=== PATIENT | female | born 1955 | race Caucasian/White ===

== ENCOUNTER 2022-12-13 17:26 | Observation (INO) | payer OTHER ==
[2022-12-13] MEDS ORDERED: DUONEB 0.5-3 MG/3 ml Neb IH ONE ×2 (18:21→18:30)
--- NOTE | 2022-12-13 18:39 | ERPHSYRPT ---
- History of Present Illness Time Seen by Provider: 12/13/22 17:28 Source: patient Exam Limitations: no limitations Patient Subjective Stated Complaint: pt here for cough,congest for a couple days, no fever Triage Nursing Assessment: pt alert, resp easy, has congested sounding cough, skin w/d/p. no edema noted, has cam boot to right foot Physician History: 67 years old female with history of hypertension, hyperlipidemia, DVT/PE on Xarelto presented in the ER with 2 to 3 days history of cough congestion, body aches, feeling fatigued tired and dehydrated. Patient reports minimal productive cough of clear to yellow sputum with generalized chest soreness because of repeated coughing. No fever or chills reported. Denies any known sick contact. No abdominal pain nausea vomiting. Timing/Duration: day(s) (2), gradual onset, worse Cough Quality/Degree: moderate, productive cough, sputum Possible Cause: unknown cause Modifying Factors: Worsens With: coughing Associated Symptoms: chest pain/soreness, cough, headache, muscle aches, nasal congestion, nasal drainage, sinus infection, sore throat, wheezing Allergies/Adverse Reactions: No Known Drug Allergies Allergy (Unverified 12/13/22 17:46) Home Medications: Amlodipine Besylate 5 mg [Norvasc 5 mg] 5 mg PO DAILY 12/13/22 [History] Atorvastatin Calcium [Lipitor 20MG Tablet] 20 mg PO DAILY 12/13/22 [History] Gabapentin [Neurontin ] 200 mg PO DAILY 12/13/22 [History] Hydrochlorothiazide 25 mg [hydroDIURIL 25 MG] 25 mg PO DAILY 12/13/22 [History] Rivaroxaban [Xarelto] 20 mg PO DAILY 12/13/22 [History] Hx Tetanus, Diphtheria Vaccination/Date Given: No Hx Influenza Vaccination/Date Given: Yes Hx Pneumococcal Vaccination/Date Given: Yes Immunizations Up to Date: Yes Travel Risk - International Travel Have you traveled outside of the country in past 3 weeks: No - Coronavirus Screening Are you exhibiting any of the following symptoms?: No - Vaccine Status Have you recieved a Covid-19 vaccination: Yes [employer]: Moderna - Vaccination Dates Date of 2cond Vaccination (if applicable): 2020 - Review of Systems Constitutional: Fatigue, Weakness Eyes: No Symptoms Ears, Nose, & Throat: Nose Congestion, Throat Pain, Throat Swelling Respiratory: Cough Abdominal/Gastrointestinal: No Symptoms Genitourinary Symptoms: No Symptoms Musculoskeletal: Myalgias Skin: No Symptoms Neurological: Headache Psychological: No Symptoms Hematologic/Lymphatic: Blood Clots Immunological/Allergic: No Symptoms - Past Medical History Pertinent Past Medical History: Yes Cardiac History: High Cholesterol, Hypertension Other Medical History: dvt - Past Surgical History Past Surgical History: Yes Gastrointestinal: Cholecystectomy Female Surgical History: Hysterectomy - Social History Smoking Status: Former smoker Exposure to second hand smoke: No Drug Use: none Patient Lives Alone: No - Nursing Vital Signs Nursing Vital Signs: Initial Vital Signs Temperature 96.9 F 12/13/22 17:54 Pulse Rate 93 H 12/13/22 17:54 Respiratory Rate 20 12/13/22 17:54 Blood Pressure 158/80 12/13/22 17:54 O2 Sat by Pulse Oximetry 95 12/13/22 17:54 Pain Scale Pain Intensity 4 - Physical Exam General Appearance: no apparent distress, alert Eye Exam: PERRL/EOMI, eyes nml inspection Ears, Nose, Throat Exam: moist mucous membranes, pharyngeal erythema Neck Exam: normal inspection, non-tender, supple, full range of motion, No meningismus Respiratory Exam: wheezing, No respiratory distress, No accessory muscle use Cardiovascular Exam: regular rate/rhythm, normal heart sounds Gastrointestinal/Abdomen Exam: soft, normal bowel sounds, No tenderness Extremity Exam: normal inspection, normal range of motion Neurologic Exam: alert, oriented x 3, cooperative Skin Exam: normal color SpO2 Interpretation: normal SpO2: 92 O2 Delivery: Room Air Ordered Tests: Active Orders 24 hr Category Date Time Status CHEST 1 VIEW (PORTABLE) Stat Exams 12/13/22 18:22 Taken BLOOD CULTURE Stat Lab 12/13/22 18:40 Received CBC W DIFF Stat Lab 12/13/22 18:30 Completed CMP Stat Lab 12/13/22 18:30 Completed Lactic Acid Stat Lab 12/13/22 18:35 Completed MAGNESIUM Stat Lab 12/13/22 18:30 Completed NT PRO BNPII Stat Lab 12/13/22 18:30 Completed TROPONIN Q4H Lab 12/13/22 18:30 Completed TROPONIN Q4H Lab 12/13/22 22:30 Ordered TROPONIN Q4H Lab 12/14/22 02:30 Ordered Respiratory Therapy Assessment DAILY RT 12/13/22 18:34 Active Medication Summary Discontinued Medications Generic Name Dose Route Start Last Admin Trade Name Kerri PRN Reason Stop Dose Admin Albuterol/Ipratropium 3 ml 12/13/22 18:21 12/13/22 18:36 Ipratropium/Albuterol Sulfate 3 Ml Ampul.Neb IH 12/13/22 18:22 3 ml STAT ONE Administration Albuterol/Ipratropium Confirm 12/13/22 18:30 Ipratropium/Albuterol Sulfate 3 Ml Ampul.Neb Administered 12/13/22 18:31 Dose 3 ml IH .STK-MED ONE Azithromycin 500 mg in 250 mls @ 250 mls/hr 12/13/22 19:08 12/13/22 20:12 Zithromax 500 Mg/ 250 Ml Nacl Premix IV 12/13/22 20:07 250 ml/hr STAT STA 250 mls/hr Administration Ceftriaxone Sodium/Dextrose 2 g in 50 mls @ 100 mls/hr 12/13/22 19:08 12/13/22 19:36 Rocephin 2 Gm-D5w 50ml Bag IV 12/13/22 19:37 100 ml/hr STAT STA 100 mls/hr Administration Ceftriaxone Sodium/Dextrose Confirm 12/13/22 19:34 Rocephin 2 Gm-D5w 50ml Bag Administered 12/13/22 19:35 Dose 2 g in 50 mls @ ud IV .STK-MED ONE Azithromycin Confirm 12/13/22 20:09 Zithromax 500 Mg/ 250 Ml Nacl Premix Administered 12/13/22 20:10 Dose 500 mg in 250 mls @ ud IV .STK-MED ONE Lab/Rad Data: Laboratory Result Diagrams 12/13/22 18:30 12/13/22 18:30 Laboratory Results 12/13/22 12/13/22 12/13/22 Range/Units 18:40 18:35 18:30 WBC (4.0-10.5) x10^3/uL RBC (4.1-5.4) x10^6/uL Hgb (12.0-16.0) g/dL Hct (35-47) % MCV (78-100) fL MCH (26-32) pg MCHC (32-36) g/dL RDW (11.5-14.0) % Plt Count (150-450) x10^3/uL MPV (7.5-11.0) fL Gran % (36.0-66.0) % Immature Gran % (Auto) (0.00-0.4) % Nucleat RBC Rel Count (0.00-0.1) % Eos # (Auto) (0-0.5) x10^3/uL Immature Gran # (Auto) (0.00-0.03) x10^3u/L Absolute Lymphs (auto) (1.0-4.6) x10^3/uL Absolute Monos (auto) (0.0-1.3) x10^3/uL Absolute Nucleated RBC (0.00-0.01) x10^3u/L Lymphocytes % (24.0-44.0) % Monocytes % (0.0-12.0) % Eosinophils % (0.00-5.0) % Basophils % (0.0-0.4) % Absolute Granulocytes (1.4-6.9) x10^3/uL Basophils # (0-0.4) x10^3/uL Sodium (137-145) mmol/L Potassium (3.5-5.1) mmol/L Chloride (98-107) mmol/L Carbon Dioxide (22-30) mmol/L Anion Gap (5-15) MEQ/L BUN (7-17) mg/dL Creatinine (0.52-1.04) mg/dL Estimated GFR ML/MIN Glucose (74-106) mg/dL Lactic Acid 1.4 (0.4-2.0) Calcium (8.4-10.2) mg/dL Magnesium (1.6-2.3) mg/dL Total Bilirubin (0.2-1.3) mg/dL AST (14-36) U/L ALT (0-35) U/L Alkaline Phosphatase (38-126) U/L Troponin I (0.000-0.034) ng/mL NT-Pro-B Natriuret Pep 156 (<300) pg/mL Serum Total Protein (6.3-8.2) g/dL Albumin (3.5-5.0) g/dL Influenza Type A Ag NEGATIVE (NEGATIVE) Influenza Type B Ag NEGATIVE (NEGATIVE) RSV (PCR) NEGATIVE (NEGATIVE) SARS-CoV-2 (PCR) NEGATIVE (NEGATIVE) Group A Strep Antibody NOT DETECTED (NEGATIVE) 12/13/22 12/13/22 12/13/22 Range/Units 18:30 18:30 18:30 WBC 7.7 (4.0-10.5) x10^3/uL RBC 4.96 (4.1-5.4) x10^6/uL Hgb 14.4 (12.0-16.0) g/dL Hct 44.0 (35-47) % MCV 88.7 (78-100) fL MCH 29.0 (26-32) pg MCHC 32.7 (32-36) g/dL RDW 11.8 (11.5-14.0) % Plt Count 240 (150-450) x10^3/uL MPV 11.0 (7.5-11.0) fL Gran % 76.0 H (36.0-66.0) % Immature Gran % (Auto) 0.8 H (0.00-0.4) % Nucleat RBC Rel Count 0.0 (0.00-0.1) % Eos # (Auto) 0.07 (0-0.5) x10^3/uL Immature Gran # (Auto) 0.06 H (0.00-0.03) x10^3u/L Absolute Lymphs (auto) 0.92 L (1.0-4.6) x10^3/uL Absolute Monos (auto) 0.74 (0.0-1.3) x10^3/uL Absolute Nucleated RBC 0.00 (0.00-0.01) x10^3u/L Lymphocytes % 11.9 L (24.0-44.0) % Monocytes % 9.6 (0.0-12.0) % Eosinophils % 0.9 (0.00-5.0) % Basophils % 0.8 (0.0-0.4) % Absolute Granulocytes 5.85 (1.4-6.9) x10^3/uL Basophils # 0.06 (0-0.4) x10^3/uL Sodium 137 (137-145) mmol/L Potassium 3.2 L (3.5-5.1) mmol/L Chloride 95 L (98-107) mmol/L Carbon Dioxide 29 (22-30) mmol/L Anion Gap 16.1 H (5-15) MEQ/L BUN 21 H (7-17) mg/dL Creatinine 1.03 (0.52-1.04) mg/dL Estimated GFR 56.5 ML/MIN Glucose 119 H (74-106) mg/dL Lactic Acid (0.4-2.0) Calcium 9.9 (8.4-10.2) mg/dL Magnesium 2.0 (1.6-2.3) mg/dL Total Bilirubin 1.30 (0.2-1.3) mg/dL AST 41 H (14-36) U/L ALT 35 (0-35) U/L Alkaline Phosphatase 127 H (38-126) U/L Troponin I < 0.012 (0.000-0.034) ng/mL NT-Pro-B Natriuret Pep (<300) pg/mL Serum Total Protein 8.4 H (6.3-8.2) g/dL Albumin 4.2 (3.5-5.0) g/dL Influenza Type A Ag (NEGATIVE) Influenza Type B Ag (NEGATIVE) RSV (PCR) (NEGATIVE) SARS-CoV-2 (PCR) (NEGATIVE) Group A Strep Antibody (NEGATIVE) - Progress Progress: re-examined Air Movement: good Progress Note: 12/13/22 18:38 67 years old female with history of hypertension, hyperlipidemia, DVT/PE on Xarelto presented in the ER with 2 to 3 days history of cough congestion, body aches, feeling fatigued tired and dehydrated. Patient reports minimal productive cough of clear to yellow sputum with generalized chest soreness because of repeated coughing. No fever or chills reported. Denies any known sick contact. No abdominal pain nausea vomiting. 12/13/22 20:00 She is given DuoNeb, on reevaluation feeling some improvement, still coughing and desatting to 86%. Placed on 2 L oxygen currently satting around 96%. Chest x-ray showed right-sided pneumonia and started on Rocephin and Zithromax. Patient work-up showed normal white count, mildly low potassium and negative troponins. Normal lactate. Discussed with Dr. Flowers and patient is being admitted. I have discussed the results of work-up and plan of admission and current management with patient and daughter in detail who understand and agree with it. Antibiotics given: No Counseled pt/family regarding: lab results, diagnosis, need for follow-up, rad results Medical Desision Making - Discussion of managment Care discussed with:: hospitalist (Dr. Lucero 2009) Reviewed:: Test results Agreed on:: Treatment plan, place in obs Will see patient: in hospital - Diagnostic Testing Diagnostic test were ordered, analyzed, and reviewed by me: Yes Radiological Interpretation: Interpreted by me, Reviewed by me - Risk of complications The pt has a high risk of morbidity or mortality based on: Decision regarding hospitilization or escalation of hosp level of care - Departure Departure Disposition: Home Clinical Impression: Pneumonia Respiratory failure Qualifiers: Chronicity: acute Respiratory failure complication: hypoxia Qualified Code(s): J96.01 - Acute respiratory failure with hypoxia Condition: Stable Critical Care Time: No Referrals: DOCTOR,NO FAMILY [NON-STAFF PHY W/O PRIVILEGES] - Follow up/PCP as directed
[2022-12-13 18:48] LABS: Absolute Neutrophil Ct (ANC) 5.85 x10^3/uL (1.4-6.9); BASOPHIL % 0.8 % (0.0-0.4); Basophil (Absolute #) 0.06 x10^3/uL (0-0.4); Eosinophil % 0.9 % (0.00-5.0); Eosinophil (Absolute #) 0.07 x10^3/uL (0-0.5); Hemoglobin 14.4 g/dL (12.0-16.0); IMMATURE GRAN # 0.06 x10^3u/L (0.00-0.03); IMMATURE GRAN % 0.8 % (0.00-0.4); Lymphocyte (Absolute #) 0.92 x10^3/uL (1.0-4.6); Lymphocytes % 11.9 % (24.0-44.0); Mean Cell Volume 88.7 fL (78-100); Mean Corpuscular Hgb Concent. 32.7 g/dL (32-36); Monocyte (Absolute #) 0.74 x10^3/uL (0.0-1.3); Monocytes % 9.6 % (0.0-12.0); Platelet Count 240 x10^3/uL (150-450); Red Blood Count 4.96 x10^6/uL (4.1-5.4); Red Cell Distribution Width 11.8 % (11.5-14.0); White Blood Count 7.7 x10^3/uL (4.0-10.5)
[2022-12-13 19:06] LABS: ALBUMIN 4.2 g/dL (3.5-5.0); ANION GAP 16.1 MEQ/L (5-15); BILIRUBIN,TOTAL 1.3 mg/dL (0.2-1.3); Calcium 9.9 mg/dL (8.4-10.2); Creatinine 1 1.03 mg/dL (0.52-1.04); EST GLOMERULAR FILTRATION RATE 56.5 ML/MIN; Potassium 3.2 mmol/L (3.5-5.1); Total Protein 8.4 g/dL (6.3-8.2)
[2022-12-13] MEDS ORDERED: Zithromax 500 MG/ 250 ML NaCl Premix 500 MG/250 ML IVPB IV STA (19:08)
[2022-12-13] MEDS ORDERED: ROCEPHIN 2 Gm-D5w 50ML BAG** 2 G/50 ML IVPB IV STA (19:08)
[2022-12-13 19:25] LABS: Group A Strep NOT DETECTED (NEGATIVE)
[2022-12-13 19:30] LABS: INFLUENZA A NEGATIVE (NEGATIVE); INFLUENZA B NEGATIVE (NEGATIVE); RESPIRATORY SYNCTIAL VIRUS NEGATIVE (NEGATIVE); SARS-CoV-2 Xpert Express NEGATIVE (NEGATIVE)
[2022-12-13] MEDS ORDERED: ROCEPHIN 2 Gm-D5w 50ML BAG** 2 G/50 ML IVPB IV ONE (19:34)
[2022-12-13] MEDS ORDERED: Zithromax 500 MG/ 250 ML NaCl Premix 500 MG/250 ML IVPB IV ONE (20:09)
[2022-12-13] MEDS ORDERED: Zofran 4 MG/2 ML VIAL IV PRN (21:57)
[2022-12-13] MEDS ORDERED: TYLENOL 325 MG PO PRN (21:57)
[2022-12-14] MEDS ORDERED: Klor Con PO ONE (00:30)
--- NOTE | 2022-12-14 00:34 | PCM.HP ---
History of Present Illness - Chief Complaint Chief Complaint: Acute hypoxic respiratory failure, pneumonia Date: 12/14/22 History of Present Illness: This is a 67-year-old female admitted for upper respiratory infection hypoxia. She has past medical history of hypertension, recent provoked VTE on Xarelto. She presented to the ED for 2 to 3 days of cough, congestion, aches. She reported cough was productive of clear/yellow/green sputum. Initial vital signs afebrile, heart rate 93, blood pressure 158/80. Labs significant for WBC 7.7, hemoglobin 14, sodium 137, potassium 3.2, creatinine 1.0, lactate 1.4, influenza antigen, RSV PCR, COVID PCR was negative, group a strep antibody negative. Chest x-ray negative for acute pathology. In the ED she received DuoNeb, ceftriaxone, azithromycin. - Review of Systems Constitutional: Fatigue Eyes: No Symptoms Ears, Nose, & Throat: No Symptoms Respiratory: Cough, Short Of Breath Cardiac: No Symptoms Abdominal/Gastrointestinal: No Symptoms Genitourinary Symptoms: No Symptoms Musculoskeletal: No Symptoms Skin: No Symptoms Psychological: No Symptoms Endocrine: No Symptoms Hematologic/Lymphatic: No Symptoms Immunological/Allergic: No Symptoms All Other Systems: Reviewed and Negative Medications & Allergies Home Medications: Home Medication List Amlodipine Besylate 5 mg [Norvasc 5 mg] 5 mg PO DAILY 12/13/22 [History Confirmed 12/13/22] Atorvastatin Calcium [Lipitor 20MG Tablet] 20 mg PO DAILY 12/13/22 [History Confirmed 12/13/22] Gabapentin [Neurontin ] 200 mg PO DAILY 12/13/22 [History Confirmed 12/13/22] Hydrochlorothiazide 25 mg [hydroDIURIL 25 MG] 25 mg PO DAILY 12/13/22 [History Confirmed 12/13/22] Rivaroxaban [Xarelto] 20 mg PO DAILY 12/13/22 [History Confirmed 12/13/22] Allergies/Adverse Reactions: Allergies Allergy/AdvReac Type Severity Reaction Status Date / Time No Known Drug Allergies Allergy Unverified 12/13/22 17:46 - Past Medical History Past Medical History: Yes Neurological History: No Pertinent History ENT History: No Pertinent History Cardiac History: High Cholesterol, Hypertension Respiratory History: Pneumonia, Pulmonary Embolism Endocrine Medical History: No Pertinent History Musculoskelatal History: Fractures GI Medical History: No Pertinent History, Gallbladder Disease History: Other Pyscho-Social History: No Pertinent History Reproductive Disorders: Menstrual Problems Comment: Hx kidney stones. - Female History Are you now?: No - Past Surgical History Past Surgical History: Yes Neuro Surgical History: No Pertinent History Cardiac History: No Pertinent History Respiratory Surgery: No Pertinent History GI Surgical History: Appendectomy Genitourinary Surgical Hx: No Pertinent History Musculskeletal Surgical Hx: No Pertinent History Female Surgical History: Hysterectomy - Social History Smoking Status: Former smoker Exposure to second hand smoke: No Alcohol: Occasionally Drug Use: none - Physical Exam Vital Signs: Vital Signs - 24 hr Temp Pulse Resp BP Pulse Ox 12/14/22 00:00 97.7 F 72 18 127/79 96 12/13/22 23:05 81 18 96 12/13/22 21:57 97.7 F 72 18 127/79 95 12/13/22 20:46 92 L 12/13/22 20:00 77 22 96 12/13/22 19:11 85 22 159/94 95 12/13/22 18:40 78 18 94 L 12/13/22 18:27 79 18 148/86 92 L 12/13/22 18:02 20 96 12/13/22 17:54 96.9 F 93 H 20 158/80 95 Results - Labs Lab/Micro Results: Lab Results-Last 24 Hours 12/13/22 12/13/22 12/13/22 Range/Units 18:30 18:30 18:30 WBC 7.7 (4.0-10.5) x10^3/uL RBC 4.96 (4.1-5.4) x10^6/uL Hgb 14.4 (12.0-16.0) g/dL Hct 44.0 (35-47) % MCV 88.7 (78-100) fL MCH 29.0 (26-32) pg MCHC 32.7 (32-36) g/dL RDW 11.8 (11.5-14.0) % Plt Count 240 (150-450) x10^3/uL MPV 11.0 (7.5-11.0) fL Gran % 76.0 H (36.0-66.0) % Immature Gran % (Auto) 0.8 H (0.00-0.4) % Nucleat RBC Rel Count 0.0 (0.00-0.1) % Eos # (Auto) 0.07 (0-0.5) x10^3/uL Immature Gran # (Auto) 0.06 H (0.00-0.03) x10^3u/L Absolute Lymphs (auto) 0.92 L (1.0-4.6) x10^3/uL Absolute Monos (auto) 0.74 (0.0-1.3) x10^3/uL Absolute Nucleated RBC 0.00 (0.00-0.01) x10^3u/L Lymphocytes % 11.9 L (24.0-44.0) % Monocytes % 9.6 (0.0-12.0) % Eosinophils % 0.9 (0.00-5.0) % Basophils % 0.8 (0.0-0.4) % Absolute Granulocytes 5.85 (1.4-6.9) x10^3/uL Basophils # 0.06 (0-0.4) x10^3/uL Sodium 137 (137-145) mmol/L Potassium 3.2 L (3.5-5.1) mmol/L Chloride 95 L (98-107) mmol/L Carbon Dioxide 29 (22-30) mmol/L Anion Gap 16.1 H (5-15) MEQ/L BUN 21 H (7-17) mg/dL Creatinine 1.03 (0.52-1.04) mg/dL Estimated GFR 56.5 ML/MIN Glucose 119 H (74-106) mg/dL Lactic Acid (0.4-2.0) Calcium 9.9 (8.4-10.2) mg/dL Magnesium 2.0 (1.6-2.3) mg/dL Total Bilirubin 1.30 (0.2-1.3) mg/dL AST 41 H (14-36) U/L ALT 35 (0-35) U/L Alkaline Phosphatase 127 H (38-126) U/L Troponin I < 0.012 (0.000-0.034) ng/mL NT-Pro-B Natriuret Pep (<300) pg/mL Serum Total Protein 8.4 H (6.3-8.2) g/dL Albumin 4.2 (3.5-5.0) g/dL Influenza Type A Ag (NEGATIVE) Influenza Type B Ag (NEGATIVE) RSV (PCR) (NEGATIVE) SARS-CoV-2 (PCR) (NEGATIVE) Group A Strep Antibody (NEGATIVE) 12/13/22 12/13/22 12/13/22 Range/Units 18:30 18:35 18:40 WBC (4.0-10.5) x10^3/uL RBC (4.1-5.4) x10^6/uL Hgb (12.0-16.0) g/dL Hct (35-47) % MCV (78-100) fL MCH (26-32) pg MCHC (32-36) g/dL RDW (11.5-14.0) % Plt Count (150-450) x10^3/uL MPV (7.5-11.0) fL Gran % (36.0-66.0) % Immature Gran % (Auto) (0.00-0.4) % Nucleat RBC Rel Count (0.00-0.1) % Eos # (Auto) (0-0.5) x10^3/uL Immature Gran # (Auto) (0.00-0.03) x10^3u/L Absolute Lymphs (auto) (1.0-4.6) x10^3/uL Absolute Monos (auto) (0.0-1.3) x10^3/uL Absolute Nucleated RBC (0.00-0.01) x10^3u/L Lymphocytes % (24.0-44.0) % Monocytes % (0.0-12.0) % Eosinophils % (0.00-5.0) % Basophils % (0.0-0.4) % Absolute Granulocytes (1.4-6.9) x10^3/uL Basophils # (0-0.4) x10^3/uL Sodium (137-145) mmol/L Potassium (3.5-5.1) mmol/L Chloride (98-107) mmol/L Carbon Dioxide (22-30) mmol/L Anion Gap (5-15) MEQ/L BUN (7-17) mg/dL Creatinine (0.52-1.04) mg/dL Estimated GFR ML/MIN Glucose (74-106) mg/dL Lactic Acid 1.4 (0.4-2.0) Calcium (8.4-10.2) mg/dL Magnesium (1.6-2.3) mg/dL Total Bilirubin (0.2-1.3) mg/dL AST (14-36) U/L ALT (0-35) U/L Alkaline Phosphatase (38-126) U/L Troponin I (0.000-0.034) ng/mL NT-Pro-B Natriuret Pep 156 (<300) pg/mL Serum Total Protein (6.3-8.2) g/dL Albumin (3.5-5.0) g/dL Influenza Type A Ag NEGATIVE (NEGATIVE) Influenza Type B Ag NEGATIVE (NEGATIVE) RSV (PCR) NEGATIVE (NEGATIVE) SARS-CoV-2 (PCR) NEGATIVE (NEGATIVE) Group A Strep Antibody NOT DETECTED (NEGATIVE) 12/13/22 Range/Units 22:30 WBC (4.0-10.5) x10^3/uL RBC (4.1-5.4) x10^6/uL Hgb (12.0-16.0) g/dL Hct (35-47) % MCV (78-100) fL MCH (26-32) pg MCHC (32-36) g/dL RDW (11.5-14.0) % Plt Count (150-450) x10^3/uL MPV (7.5-11.0) fL Gran % (36.0-66.0) % Immature Gran % (Auto) (0.00-0.4) % Nucleat RBC Rel Count (0.00-0.1) % Eos # (Auto) (0-0.5) x10^3/uL Immature Gran # (Auto) (0.00-0.03) x10^3u/L Absolute Lymphs (auto) (1.0-4.6) x10^3/uL Absolute Monos (auto) (0.0-1.3) x10^3/uL Absolute Nucleated RBC (0.00-0.01) x10^3u/L Lymphocytes % (24.0-44.0) % Monocytes % (0.0-12.0) % Eosinophils % (0.00-5.0) % Basophils % (0.0-0.4) % Absolute Granulocytes (1.4-6.9) x10^3/uL Basophils # (0-0.4) x10^3/uL Sodium (137-145) mmol/L Potassium (3.5-5.1) mmol/L Chloride (98-107) mmol/L Carbon Dioxide (22-30) mmol/L Anion Gap (5-15) MEQ/L BUN (7-17) mg/dL Creatinine (0.52-1.04) mg/dL Estimated GFR ML/MIN Glucose (74-106) mg/dL Lactic Acid (0.4-2.0) Calcium (8.4-10.2) mg/dL Magnesium (1.6-2.3) mg/dL Total Bilirubin (0.2-1.3) mg/dL AST (14-36) U/L ALT (0-35) U/L Alkaline Phosphatase (38-126) U/L Troponin I < 0.012 (0.000-0.034) ng/mL NT-Pro-B Natriuret Pep (<300) pg/mL Serum Total Protein (6.3-8.2) g/dL Albumin (3.5-5.0) g/dL Influenza Type A Ag (NEGATIVE) Influenza Type B Ag (NEGATIVE) RSV (PCR) (NEGATIVE) SARS-CoV-2 (PCR) (NEGATIVE) Group A Strep Antibody (NEGATIVE) - Radiology Impressions Radiology Exams & Impressions: Radiology Procedures Category Date Time Status CHEST 1 VIEW (PORTABLE) Stat Exams 12/13/22 18:22 Taken - Other Procedures and Tests Respiratory Therapy 12/13/22 18:34 Respiratory Therapy Assessment DAILY 12/13/22 23:02 Oxygen Nasal Cannula 2 lpm Assessment/Plan (1) Hypoxia Current Visit: Yes Status: Acute Code(s): R09.02 - HYPOXEMIA (2) Bronchitis Current Visit: Yes Status: Acute Assessment & Plan: PHYSICAL EXAM Gen: Alert and oriented, NAD Eyes: PERRL ENT: MMM CV: S1S2 no m/g/r Pulm: Expiratory wheeze, coarse BS Abd: Soft/nt/nd Extrem: No c/c/e Skin: Dry and intact Neuro: No focal deficits ASSESSMENT #Upper respiratory infection #Hypoxia #Hypokalemia #History of VTE on Xarelto #History of hypertension #Recent RLE fracture PLAN -Ceftriaxone, azithromycin -Prednisone -Repeat CXR in AM -Follow sputum culture -Replete potassium -Continue anticoagulation -Wean oxygen to keep saturation 92% Prophylaxis: Already anticoagulated Entire encounter performed via telemedicine Code(s): J40 - BRONCHITIS, NOT SPECIFIED ACUTE OR CHRONIC Telemedicine Encounter - Telemedicine Encounter Telemedicine Encounter: The entirety of this encounter was performed via Telemedicine"
[2022-12-14] MEDS: DELTASONE 20 MG PO SCH ×2 (00:47→10:20)
[2022-12-14] MEDS ORDERED: DUONEB 0.5-3 MG/3 ml Neb IH SCH ×2 (01:00→03:00)
[2022-12-14 05:00] LABS: Absolute Neutrophil Ct (ANC) 5.56 x10^3/uL (1.4-6.9); BASOPHIL % 0.5 % (0.0-0.4); Basophil (Absolute #) 0.03 x10^3/uL (0-0.4); Eosinophil % 0.3 % (0.00-5.0); Eosinophil (Absolute #) 0.02 x10^3/uL (0-0.5); Hematocrit 44.5 % (35-47); Hemoglobin 14.6 g/dL (12.0-16.0); IMMATURE GRAN # 0.04 x10^3u/L (0.00-0.03); IMMATURE GRAN % 0.6 % (0.00-0.4); Lymphocyte (Absolute #) 0.68 x10^3/uL (1.0-4.6); Lymphocytes % 10.4 % (24.0-44.0); Mean Cell Volume 88.8 fL (78-100); Mean Corpuscular Hemoglobin 29.1 pg (26-32); Mean Corpuscular Hgb Concent. 32.8 g/dL (32-36); Mean Platelet Volume 10.7 fL (7.5-11.0); Monocyte (Absolute #) 0.21 x10^3/uL (0.0-1.3); Monocytes % 3.2 % (0.0-12.0); Platelet Count 259 x10^3/uL (150-450); Red Blood Count 5.01 x10^6/uL (4.1-5.4); Red Cell Distribution Width 11.9 % (11.5-14.0); White Blood Count 6.5 x10^3/uL (4.0-10.5)
[2022-12-14 05:28] LABS: ALBUMIN 4.2 g/dL (3.5-5.0); ALKALINE PHOSPHATASE 120 U/L (38-126); ANION GAP 14.1 MEQ/L (5-15); BLOOD UREA NITROGEN 25 mg/dL (7-17); CHLORIDE 97 mmol/L (98-107); Calcium 9.7 mg/dL (8.4-10.2); Carbon Dioxide 30 mmol/L (22-30); Creatinine 1 0.93 mg/dL (0.52-1.04); EST GLOMERULAR FILTRATION RATE > 60.0 ML/MIN; Glucose 139 mg/dL (74-106); Potassium 4.1 mmol/L (3.5-5.1); SGOT/AST 42 U/L (14-36); SGPT/ALT 36 U/L (0-35); SODIUM 137 mmol/L (137-145); Total Protein 8.3 g/dL (6.3-8.2)
[2022-12-14] MEDS ORDERED: DUONEB 0.5-3 MG/3 ml Neb IH PRN ×2 (07:00→09:48)
--- NOTE | 2022-12-14 08:51 | XRAY ---
Indication: Cough. Comparison: None Portable chest demonstrates minimal bibasilar infiltrates versus atelectasis and tiny right effusion. Remaining heart and bony thorax unremarkable.
[2022-12-14] MEDS ORDERED: NON-FORMULARY ITEM (Rivaroxaban [Xarelto] 20 MG Tablet) PO SCH (10:00)
[2022-12-14] MEDS ORDERED: Neurontin PO SCH ×2 (10:00→20:00)
[2022-12-14] MEDS ORDERED: NON-FORMULARY ITEM (Atorvastatin Calcium 20 MG Tab) PO SCH (10:00)
[2022-12-14] MEDS: Zithromax 500 MG/ 250 ML NaCl Premix 500 MG/250 ML IVPB IV SCH ×2 (10:18→21:41)
[2022-12-14] MEDS: PROTONIX 40 MG IV IV SCH (10:19)
[2022-12-14] MEDS: ZOCOR 20MG PO SCH (10:20)
[2022-12-14] MEDS: NORVASC 5 MG PO SCH (10:20)
[2022-12-14] MEDS: hydroDIURIL 25 MG PO SCH (10:20)
[2022-12-14] MEDS: XARELTO 10 MG TABLET PO SCH (10:20)
--- NOTE | 2022-12-14 14:30 | TM.IN ---
Tele-Medicine Incident Note - Incident Note Tel-Medicine Incident Note: 12/14/22 1429 Follow-up note Patient seen by Dr. Montilla overnight, and then followed up on during daily rounds today. Still having a lot of coughing, although weaned to room air. Still feels a little shaky. On exam, she is moving air well, but still has end expiratory wheezes. Patient admitted overnight with acute bronchitis. She remains on Rocephin and azithromycin, with prednisone and bronchodilators for her hyperreactive airways. We will continue to observe, and likely will be ready for home discharge tomorrow or perhaps Monday. Telemedicine Encounter - Telemedicine Encounter Telemedicine Encounter: The entirety of this encounter was performed via Telemedicine"
[2022-12-14] MEDS ORDERED: ROCEPHIN 2 Gm-D5w 50ML BAG** 2 G/50 ML IVPB IV SCH (22:00)
[2022-12-15 04:53] LABS: Hematocrit 40.6 % (35-47); Hemoglobin 13.7 g/dL (12.0-16.0); Mean Cell Volume 87.1 fL (78-100); Mean Corpuscular Hemoglobin 29.4 pg (26-32); Mean Corpuscular Hgb Concent. 33.7 g/dL (32-36); Mean Platelet Volume 11.1 fL (7.5-11.0); Platelet Count 332 x10^3/uL (150-450); Red Blood Count 4.66 x10^6/uL (4.1-5.4); Red Cell Distribution Width 11.9 % (11.5-14.0); White Blood Count 11.6 x10^3/uL (4.0-10.5)
[2022-12-15 05:06] LABS: ANION GAP 10.5 MEQ/L (5-15); BLOOD UREA NITROGEN 33 mg/dL (7-17); CHLORIDE 100 mmol/L (98-107); Calcium 9.6 mg/dL (8.4-10.2); Carbon Dioxide 33 mmol/L (22-30); Creatinine 1 0.88 mg/dL (0.52-1.04); EST GLOMERULAR FILTRATION RATE > 60.0 ML/MIN; Glucose 149 mg/dL (74-106); Potassium 3.3 mmol/L (3.5-5.1); SODIUM 140 mmol/L (137-145)
[2022-12-15] MEDS ORDERED: Klor Con PO ONE (08:17)
[2022-12-15] MEDS: hydroDIURIL 25 MG PO SCH (09:06)
[2022-12-15] MEDS: PROTONIX 40 MG IV IV SCH (09:06)
[2022-12-15] MEDS: XARELTO 10 MG TABLET PO SCH (09:06)
[2022-12-15] MEDS: NORVASC 5 MG PO SCH (09:07)
[2022-12-15] MEDS: DELTASONE 20 MG PO SCH (09:07)
[2022-12-15] MEDS: ZOCOR 20MG PO SCH (09:07)
--- NOTE | 2022-12-15 11:47 | PCM.DS ---
Discharge Summary Date of Admission: 12/13/22 21:53 Date of Discharge: 12/15/2022 Admitting Physician: RAFAT MARTINEZ MD Primary Care Provider: An Valencia, [facility] internal medicine, [facility] Allergies Allergies No Known Drug Allergies Allergy (Unverified 12/13/22 17:46) Hospital Summary - Hospital Course Hospital Course: 67-year-old with a history of hypertension and recent VTE on Xarelto, who presented with 2 to 3 days of cough, congestion, and aches, with yellow-green sputum production. Her chest x-ray was negative for infiltrate, but she had severe cough and poor air movement, consistent with acute bronchitis. She was put on Rocephin and azithromycin, as well as prednisone. She was weaned from 2 L oxygen on admission to room air. She felt much better by time of discharge, with resolution of wheezing and good air movement on exam. She still has some cough, but was able to sit up in the chair and ambulate around the room without difficulty. She will be discharged to home, and currently has plans to fly back to her home in [place] on Wednesday 12/20. She will follow-up with her PCP there, Dr. An Valencia. Greater than 30 minutes were spent arranging discharge. - Vitals & Intake/Output Vital Signs: Vital Signs Temperature 97.1 F 12/15/22 07:19 Pulse Rate 59 L 12/15/22 07:19 Respiratory Rate 16 12/15/22 07:19 Blood Pressure 110/58 12/15/22 07:19 O2 Sat by Pulse Oximetry 93 L 12/15/22 07:19 Intake & Output: Intake & Output 12/12/22 12/13/22 12/14/22 12/15/22 11:59 11:59 11:59 11:59 Intake Total 200 1000 Output Total 200 Balance 200 800 Weight 70.1 kg - Lab Result Diagrams: 12/15/22 04:20 12/15/22 04:20 Lab Results-Last 24 Hrs: Lab Results-Last 24 Hours 12/15/22 12/15/22 Range/Units 04:20 04:20 WBC 11.6 H (4.0-10.5) x10^3/uL RBC 4.66 (4.1-5.4) x10^6/uL Hgb 13.7 (12.0-16.0) g/dL Hct 40.6 (35-47) % MCV 87.1 (78-100) fL MCH 29.4 (26-32) pg MCHC 33.7 (32-36) g/dL RDW 11.9 (11.5-14.0) % Plt Count 332 (150-450) x10^3/uL MPV 11.1 H (7.5-11.0) fL Sodium 140 (137-145) mmol/L Potassium 3.3 L (3.5-5.1) mmol/L Chloride 100 (98-107) mmol/L Carbon Dioxide 33 H (22-30) mmol/L Anion Gap 10.5 (5-15) MEQ/L BUN 33 H (7-17) mg/dL Creatinine 0.88 (0.52-1.04) mg/dL Estimated GFR > 60.0 ML/MIN Glucose 149 H (74-106) mg/dL Calcium 9.6 (8.4-10.2) mg/dL Micro Results-Entire Visit: Microbiology 12/13/22 18:30 Blood Culture - Preliminary Blood 12/13/22 18:40 Blood Culture - Preliminary Blood 12/14/22 09:00 Gram Stain - Final Sputum - Expectorant - Radiology Exams Ordered Rad Exams-Entire Visit: Radiology Procedures Category Date Time Status CHEST 1 VIEW (PORTABLE) Stat Exams 12/13/22 18:22 Completed Chest x-ray minimal bibasilar infiltrates versus atelectasis and tiny right effusion. - Procedures and Test Procedures and Tests throughout Hospitalization: Therapy Orders & Screens 12/13/22 18:34 Respiratory Therapy Assessment DAILY Comment: 12/13/22 23:02 Oxygen Nasal Cannula 2 lpm Comment: Diagnosis: Acute hypoxic respiratory failure, pneumonia Discharge Exam General Appearance: no apparent distress Neurologic Exam: alert, oriented x 3, normal mood/affect Eye Exam: eyes nml inspection Respiratory Exam: normal breath sounds, No diminished breath sounds, No accessory muscle use, No prolonged expirations, No wheezing Cardiovascular Exam: regular rate/rhythm, No murmur, No edema Gastrointestinal/Abdomen Exam: soft, No tenderness, No distention Final Diagnosis/Problem List - Final Discharge Diagnosis/Problem (1) Acute bronchitis Current Visit: Yes Status: Acute Code(s): J20.9 - ACUTE BRONCHITIS, UNSPECIFIED Telemedicine Encounter - Telemedicine Encounter Telemedicine Encounter: The entirety of this encounter was performed via Telemedicine" - Discharge Discharge Date: 12/15/22 Disposition: Home, Self-Care Condition: Stable Prescriptions: New Azithromycin 250 mg PO DAILY #4 tablet Prednisone 20 mg [Deltasone 20 mg] 40 mg PO DAILY #6 tablet Albuterol Sulfate [Proair Respiclick] 2 puff IH Q4HPRN PRN #1 inhaler PRN Reason: Shortness Of Breath/Wheezing Continue Rivaroxaban [Xarelto] 20 mg PO DAILY Gabapentin [Neurontin ] 200 mg PO 2000 Hydrochlorothiazide 25 mg [hydroDIURIL 25 MG] 25 mg PO DAILY Amlodipine Besylate 5 mg [Norvasc 5 mg] 5 mg PO DAILY Atorvastatin Calcium [Lipitor 20MG Tablet] 20 mg PO DAILY Instructions: Deep Vein Thrombosis (Blood Clots in the Legs) (DC), Pneumonia, Adult (DC), How to use your dry powder inhaler (adults) Follow up with: An Valencia [Other] - 2 weeks Forms: Discharge Instructions
[2022-12-15 12:14] VITALS: BP 123/78; PULSE 70; O2SAT 95
== END 2022-12-15 13:18 | disposition home or self-care (01) ==
LOC: ED 17:26 → MED SURG 21:53
PROVIDERS: ADMIT Internal Medicine; ATTEND Family Medicine
DX: J20.9 Acute bronchitis, unspecified (principal); R09.02 Hypoxemia; I10 Essential (primary) hypertension; E78.5 Hyperlipidemia, unspecified; E87.6 Hypokalemia; S82.91XD Unspecified fracture of right lower leg, subsequent encounter for closed fracture with routine healing; Z79.899 Other long term (current) drug therapy; Z20.828 Contact with and (suspected) exposure to other viral communicable diseases; Z79.01 Long term (current) use of anticoagulants
CPT/HCPCS: 0241U; 36415; 71045; 80048; 80053; 83605; 83735; 83880; 84484; 85025; 85027; 87040; 87070; 87651; 93268; 94640; 94760; 99285; G0378; Q3014; J0456; J0696; A9270-GY

== ENCOUNTER 2023-11-27 12:55 | Emergency (ER) | payer MEDICARE ==
--- NOTE | 2023-11-27 13:00 | ERPHSYRPT ---
- History of Present Illness Time Seen by Provider: 11/27/23 13:00 Source: patient, family Exam Limitations: no limitations Physician History: This is a 68-year-old white female patient with no local primary care provider and is visiting from [place] and presents with worsening symptoms of bodyaches, cough, chest and nasal congestion, shortness of breath and diarrhea. She does have mild chest pain only when she is coughing. Patient took a home COVID-19 test last night and it was positive. She has not had any nausea or vomiting. She denies abdominal pain. Room air oxygen saturation levels are 96 to 97%. Timing/Duration: day(s) (3 to 4 days), worse (Symptoms worse last evening and today) Possible Cause: occasional episodes Modifying Factors: Improves With: coughing Associated Symptoms: chest pain/soreness (Only with coughing), cough, muscle aches, nasal congestion, shortness of breath (Male with coughing) Allergies/Adverse Reactions: No Known Drug Allergies Allergy (Verified 11/27/23 13:09) Home Medications: Amlodipine Besylate 5 mg [Norvasc 5 mg] 5 mg PO DAILY 12/13/22 [History] Atorvastatin Calcium [Lipitor 20MG Tablet] 20 mg PO DAILY 12/13/22 [History] Gabapentin [Neurontin ] 200 mg PO 2000 12/13/22 [History] Hydrochlorothiazide 25 mg [hydroDIURIL 25 MG] 25 mg PO DAILY 12/13/22 [History] Rivaroxaban [Xarelto] 20 mg PO DAILY 12/13/22 [History] Hx Tetanus, Diphtheria Vaccination/Date Given: No Hx Influenza Vaccination/Date Given: Yes Hx Pneumococcal Vaccination/Date Given: Yes Travel Risk - International Travel Have you traveled outside of the country in past 3 weeks: No - Emerging Infectious Disease Are you exhibiting symptoms associated with any current EIDs: Yes Symptoms: Cough: New Onset, Diarrhea, Headaches/Body Aches/ - Review of Systems Constitutional: No Symptoms Eyes: No Symptoms Ears, Nose, & Throat: Nose Congestion Respiratory: Cough, Dyspnea (Coughing) Cardiac: Chest Pain (With coughing) Abdominal/Gastrointestinal: Diarrhea, No Abdominal Pain, No Nausea, No Vomiting, No Constipation Genitourinary Symptoms: No Symptoms Musculoskeletal: Arthralgias, Myalgias Skin: No Symptoms Neurological: No Symptoms Psychological: No Symptoms Endocrine: No Symptoms Hematologic/Lymphatic: No Symptoms Immunological/Allergic: No Symptoms All Other Systems: Reviewed and Negative - Past Medical History Pertinent Past Medical History: Yes Neurological History: No Pertinent History ENT History: No Pertinent History Cardiac History: High Cholesterol, Hypertension Respiratory History: Pneumonia, Pulmonary Embolism Endocrine Medical History: No Pertinent History Musculoskeletal History: Fractures GI Medical History: No Pertinent History, Gallbladder Disease History: Other Psycho-Social History: No Pertinent History Female Reproductive Disorders: Menstrual Problems Other Medical History: Hx kidney stones. - Past Surgical History Past Surgical History: Yes Neuro Surgical History: No Pertinent History Cardiac: No Pertinent History Respiratory: No Pertinent History Gastrointestinal: Appendectomy Genitourinary: No Pertinent History Musculoskeletal: No Pertinent History Female Surgical History: Hysterectomy - Social History Smoking Status: Former smoker Exposure to second hand smoke: No Drug Use: none Patient Lives Alone: No - Nursing Vital Signs Nursing Vital Signs: Initial Vital Signs Temperature 96.7 F 11/27/23 13:08 Pulse Rate 76 11/27/23 13:08 Respiratory Rate 16 11/27/23 13:08 Blood Pressure 141/90 11/27/23 13:08 O2 Sat by Pulse Oximetry 96 11/27/23 13:08 Pain Scale Pain Intensity 5 - Physical Exam General Appearance: no apparent distress, alert, anxiety, obese Eye Exam: PERRL/EOMI, eyes nml inspection Ears, Nose, Throat Exam: normal ENT inspection, moist mucous membranes Neck Exam: normal inspection, non-tender, supple, full range of motion Respiratory Exam: normal breath sounds, lungs clear, airway intact, No chest tenderness, No respiratory distress Cardiovascular Exam: regular rate/rhythm, normal heart sounds, normal peripheral pulses Gastrointestinal/Abdomen Exam: soft, normal bowel sounds, No tenderness Pelvic Exam: not done Rectal Exam: not done Back Exam: normal inspection, normal range of motion, CVA tenderness Extremity Exam: normal inspection, normal range of motion, pelvis stable Neurologic Exam: alert, oriented x 3, cooperative, mechanical inspector II-XII nml as tested, normal mood/affect, nml cerebellar function, nml station & gait, sensation nml Skin Exam: normal color, warm, dry Lymphatic Exam: No adenopathy SpO2 Interpretation: normal O2 Delivery: Room Air - Course Nursing assessment & vital signs reviewed: Yes Ordered Tests: Active Orders 24 hr Category Date Time Status Home Teaching Grades 7 And 8 Teacher STAT Care 11/27/23 13:22 Active EKG-ER Only STAT Care 11/27/23 13:21 Active IV Insertion STAT Care 11/27/23 13:21 Active CHEST 1 VIEW (PORTABLE) Stat Exams 11/27/23 13:21 Completed BLOOD CULTURE Stat Lab 11/27/23 13:39 Received CBC W DIFF Stat Lab 11/27/23 13:30 Completed CMP Stat Lab 11/27/23 13:34 Completed Lactic Acid Stat Lab 11/27/23 13:40 Completed NT PRO BNPII Stat Lab 11/27/23 13:36 Completed TROPONIN Q4H Lab 11/27/23 13:36 Completed TROPONIN Q4H Lab 11/27/23 17:30 Ordered TROPONIN Q4H Lab 11/27/23 21:30 Ordered Medication Summary Discontinued Medications Generic Name Dose Route Start Last Admin Trade Name Freq PRN Reason Stop Dose Admin Hydrocodone Bitart/Acetaminophen 10 ml 11/27/23 13:22 11/27/23 13:36 Hydrocodone/Acetaminophen 5 Ml Udcup PO 11/27/23 13:23 10 ml STAT STA Administration Hydrocodone Bitart/Acetaminophen Confirm 11/27/23 13:34 Hydrocodone/Acetaminophen 5 Ml Udcup Administered 11/27/23 13:35 Dose 10 ml .ROUTE .STK-MED ONE Methylprednisolone Sodium 0 mg 11/27/23 13:22 11/27/23 13:37 Succinate 125 mg/ Sterile IV 11/27/23 13:23 125 mg Water 2 ml STAT ONE Administration Methylprednisolone Sodium Succinate Confirm 11/27/23 13:34 Methylprednis Sod Succ 125 Mg/2 Ml Vial Administered 11/27/23 13:35 Dose 125 mg .ROUTE .STK-MED ONE Potassium Chloride 20 meq 11/27/23 14:21 11/27/23 14:26 Potassium Chloride Tab 10 Meq Tab PO 11/27/23 14:22 20 meq STAT ONE Administration Potassium Chloride Confirm 11/27/23 14:25 Potassium Chloride Tab 10 Meq Tab Administered 11/27/23 14:26 Dose 20 meq .ROUTE .STK-MED ONE Sterile Water Confirm 11/27/23 13:33 Water For Injection,Sterile 10 Ml Vial Administered 11/27/23 13:34 Dose 10 ml IJ .STK-MED ONE Lab/Rad Data: Laboratory Result Diagrams 11/27/23 13:30 11/27/23 13:34 Laboratory Results 11/27/23 11/27/23 11/27/23 Range/Units 13:40 13:36 13:36 WBC (3.98-10.04) x10^3/uL RBC (3.93-5.22) x10^6/uL Hgb (11.2-15.7) g/dL Hct (34.1-44.9) % MCV (79.4-94.8) fL MCH (25.6-32.2) pg MCHC (32.2-35.5) g/dL RDW (11.7-14.4) % Plt Count (182-369) x10^3/uL MPV (9.4-12.3) fL Gran % (34.0-71.1) % Immature Gran % (Auto) (0.001-0.429) % Nucleat RBC Rel Count (0.00-0.2) % Eos # (Auto) (0.04-0.36) x10^3/uL Immature Gran # (Auto) (0.001-0.031) x10^3u/L Absolute Lymphs (auto) (1.18-3.74) x10^3/uL Absolute Monos (auto) (0.24-0.86) x10^3/uL Absolute Nucleated RBC (0.00-0.012) x10^3u/L Lymphocytes % (19.3-51.7) % Monocytes % (4.7-12.5) % Eosinophils % (0.7-5.8) % Basophils % (0.1-1.2) % Absolute Granulocytes (1.56-6.13) x10^3/uL Basophils # (0.01-0.08) x10^3/uL Sodium (135-145) mmol/L Potassium (3.5-5.1) mmol/L Chloride (98-107) mmol/L Carbon Dioxide (22-30) mmol/L Anion Gap (5-15) MEQ/L BUN (7-17) mg/dL Creatinine (0.52-1.04) mg/dL Estimated GFR ML/MIN Glucose (74-106) mg/dL Lactic Acid 1.3 (0.4-2.0) Calcium (8.4-10.2) mg/dL Total Bilirubin (0.2-1.3) mg/dL AST (14-36) U/L ALT (0-35) U/L Alkaline Phosphatase (38-126) U/L Troponin I < 0.012 (0.000-0.033) ng/mL NT-Pro-B Natriuret Pep 94.3 (<300) pg/mL Serum Total Protein (6.3-8.2) g/dL Albumin (3.5-5.0) g/dL Influenza Type A Ag (NEGATIVE) Influenza Type B Ag (NEGATIVE) RSV (PCR) (NEGATIVE) SARS-CoV-2 (PCR) (NEGATIVE) 11/27/23 11/27/23 11/27/23 Range/Units 13:34 13:34 13:30 WBC 3.5 L (3.98-10.04) x10^3/uL RBC 5.30 H (3.93-5.22) x10^6/uL Hgb 16.0 H (11.2-15.7) g/dL Hct 46.9 H (34.1-44.9) % MCV 88.5 (79.4-94.8) fL MCH 30.2 (25.6-32.2) pg MCHC 34.1 (32.2-35.5) g/dL RDW 12.6 (11.7-14.4) % Plt Count 222 (182-369) x10^3/uL MPV 10.5 (9.4-12.3) fL Gran % 66.0 (34.0-71.1) % Immature Gran % (Auto) 0.3 (0.001-0.429) % Nucleat RBC Rel Count 0.0 (0.00-0.2) % Eos # (Auto) 0.02 L (0.04-0.36) x10^3/uL Immature Gran # (Auto) 0.01 (0.001-0.031) x10^3u/L Absolute Lymphs (auto) 0.83 L (1.18-3.74) x10^3/uL Absolute Monos (auto) 0.29 (0.24-0.86) x10^3/uL Absolute Nucleated RBC 0.00 (0.00-0.012) x10^3u/L Lymphocytes % 24.1 (19.3-51.7) % Monocytes % 8.4 (4.7-12.5) % Eosinophils % 0.6 L (0.7-5.8) % Basophils % 0.6 (0.1-1.2) % Absolute Granulocytes 2.28 (1.56-6.13) x10^3/uL Basophils # 0.02 (0.01-0.08) x10^3/uL Sodium 139 (135-145) mmol/L Potassium 3.0 L* (3.5-5.1) mmol/L Chloride 100 (98-107) mmol/L Carbon Dioxide 28 (22-30) mmol/L Anion Gap 13.6 (5-15) MEQ/L BUN 18 H (7-17) mg/dL Creatinine 1.08 H (0.52-1.04) mg/dL Estimated GFR 55.3 ML/MIN Glucose 114 H (74-106) mg/dL Lactic Acid (0.4-2.0) Calcium 10.0 (8.4-10.2) mg/dL Total Bilirubin 0.90 (0.2-1.3) mg/dL AST 27 (14-36) U/L ALT 20 (0-35) U/L Alkaline Phosphatase 77 (38-126) U/L Troponin I (0.000-0.033) ng/mL NT-Pro-B Natriuret Pep (<300) pg/mL Serum Total Protein 7.6 (6.3-8.2) g/dL Albumin 4.3 (3.5-5.0) g/dL Influenza Type A Ag NEGATIVE (NEGATIVE) Influenza Type B Ag NEGATIVE (NEGATIVE) RSV (PCR) NEGATIVE (NEGATIVE) SARS-CoV-2 (PCR) POSITIVE A (NEGATIVE) - Progress Progress: improved, re-examined Air Movement: good Progress Note: 11/27/23 13:27 My medical decision making and the assignment of moderate complexity to this patient's medical issue today is based on review of the patient's past medical history, review the patient's medication list, review of patient drug allergy list, history present illness and physical findings on examination. The workup in this patient includes placement of intravenous line, chest x-ray, twelve-lead EKG, BNP, troponin level, viral swabs. I will also provide the patient with infusion of Solu-Medrol intravenously and provide the patient with oral hydrocodone elixir to help suppress her cough. Differential diagnosis includes but is not limited to bacterial pneumonia, viral pneumonia, viral illness, COPD exacerbation, CHF exacerbation, myocardial infarction 11/27/23 14:33 I interpreted the patient's laboratory data results. The patient is positive for COVID-19 infection. She has a mildly low potassium level. Based on her laboratory data results, she has no other acute, emergent findings. We provided her with potassium 20 mEq orally here in the emergency department. Chest x-ray was interpreted by the radiologist and I reviewed the impression. When compared to similar chest x-ray December 13, 2022, there is new minimal right infrahilar discoid atelectasis/scarring. The remaining lungs are clear. This patient is safe for discharge to home. She has COVID-19 infection but she also has a room air oxygen saturation level of 97%. Will remotely send a prescription of albuterol inhaler, prednisone and hydrocodone elixir to help suppress her cough. Blood Culture(s) Obtained: Yes Counseled pt/family regarding: lab results, diagnosis, rad results Medical Desision Making - Diagnostic Testing Diagnostic test were ordered, analyzed, and reviewed by me: Yes Radiological Interpretation: Reviewed by me, Teleradiologist Report - Risk of complications The pt has a mod risk of morbidity or mortality based on: Need for prescription drug management - Departure Departure Disposition: Home Clinical Impression: Upper respiratory infection, COVID-19 virus infection, Hypokalemia Condition: Stable Critical Care Time: No Referrals: DOCTOR,NO FAMILY [Primary Care Provider] - Follow up/PCP as directed Additional Instructions: Drink plenty fluid. Avoid any exposure to any type of smoke. Take your antibiotics and other medications as prescribed. Call your primary care provider today, 11/27/2023, to make arranges for follow-up appointment to be reevaluated in the next 7 to 10 days. Prescriptions: Prednisone 10 mg [Deltasone 10 mg] 10 mg PO TID #12 tablet Hydrocodone/Acetaminophen [Hydrocodone-Acetamn 7.5-325/15] 10 ml PO Q8H PRN #120 ml MDD 30 ml PRN Reason: Cough Potassium Chloride Tab* [Klor Con] 10 meq PO BID #4 tab Albuterol 8 gm Mdi Hfa [Ventolin Hfa MDI] 8 gm IH Q4H #1 unit Azithromycin 250 mg [Zithromax 250 MG TABLET] 250 mg PO ZPACK #6 tablet
[2023-11-27 13:09] VITALS: TEMP 96.7
[2023-11-27] MEDS ORDERED: Sterile H2O 10 ml IJ ONE (13:33)
[2023-11-27] MEDS ORDERED: HYDROCODONE-ACETAMIN 2.5-108/5 ML SOLUTION ONE (13:34)
[2023-11-27] MEDS ORDERED: solu-MEDROL ONE (13:34)
[2023-11-27] MEDS: HYDROCODONE-ACETAMIN 2.5-108/5 ML SOLUTION PO STA (13:36)
[2023-11-27] MEDS: solu-MEDROL 125 MG, Sterile H2O 10 ml 2 ML IV ONE (13:37)
[2023-11-27 13:45] LABS: Absolute Neutrophil Ct (ANC) 2.28 x10^3/uL (1.56-6.13); BASOPHIL % 0.6 % (0.1-1.2); Basophil (Absolute #) 0.02 x10^3/uL (0.01-0.08); Eosinophil % 0.6 % (0.7-5.8); Eosinophil (Absolute #) 0.02 x10^3/uL (0.04-0.36); Hematocrit 46.9 % (34.1-44.9); IMMATURE GRAN # 0.01 x10^3u/L (0.001-0.031); IMMATURE GRAN % 0.3 % (0.001-0.429); Lymphocyte (Absolute #) 0.83 x10^3/uL (1.18-3.74); Lymphocytes % 24.1 % (19.3-51.7); Mean Cell Volume 88.5 fL (79.4-94.8); Mean Corpuscular Hemoglobin 30.2 pg (25.6-32.2); Mean Corpuscular Hgb Concent. 34.1 g/dL (32.2-35.5); Mean Platelet Volume 10.5 fL (9.4-12.3); Monocyte (Absolute #) 0.29 x10^3/uL (0.24-0.86); Monocytes % 8.4 % (4.7-12.5); Platelet Count 222 x10^3/uL (182-369); Red Cell Distribution Width 12.6 % (11.7-14.4); White Blood Count 3.5 x10^3/uL (3.98-10.04)
[2023-11-27 14:01] LABS: ALBUMIN 4.3 g/dL (3.5-5.0); ANION GAP 13.6 MEQ/L (5-15); BILIRUBIN,TOTAL 0.9 mg/dL (0.2-1.3); Creatinine 1 1.08 mg/dL (0.52-1.04); EST GLOMERULAR FILTRATION RATE 55.3 ML/MIN; Total Protein 7.6 g/dL (6.3-8.2)
[2023-11-27 14:23] LABS: INFLUENZA A NEGATIVE (NEGATIVE); INFLUENZA B NEGATIVE (NEGATIVE); RESPIRATORY SYNCTIAL VIRUS NEGATIVE (NEGATIVE)
[2023-11-27] MEDS ORDERED: Klor Con ONE (14:25)
[2023-11-27] MEDS: Klor Con PO ONE (14:26)
[2023-11-27 14:28] LABS: SARS-CoV-2 Xpert Express POSITIVE (NEGATIVE)
--- NOTE | 2023-11-27 14:33 | XRAY ---
Indication: Cough. Comparison: December 13, 2022 Portable chest demonstrates new minimal right infrahilar discoid atelectasis/scarring. Remaining lungs are now clear. Heart not enlarged. Bony thorax intact.
[2023-11-27 14:51] VITALS: BP 126/76; PULSE 60; RESP 16; O2SAT 95
== END 2023-11-27 14:58 | disposition home or self-care (01) ==
LOC: ED 12:55
DX: U07.1 COVID-19 (principal); J06.9 Acute upper respiratory infection, unspecified; E87.6 Hypokalemia; M79.10 Myalgia, unspecified site; R05.9 Cough, unspecified; R09.81 Nasal congestion; R06.02 Shortness of breath; R19.7 Diarrhea, unspecified; E78.5 Hyperlipidemia, unspecified; I10 Essential (primary) hypertension; Z79.01 Long term (current) use of anticoagulants; Z79.891 Long term (current) use of opiate analgesic; Z79.52 Long term (current) use of systemic steroids; Z79.899 Other long term (current) drug therapy
CPT/HCPCS: 0241U; 36000; 36415; 71045; 80053; 83605; 83880; 84484; 85025; 87040; 93005; 93041; 96374; 99284; J2919; A9270-GY